=== PATIENT | male | born 1955 | race Caucasian/White ===

== ENCOUNTER → 2022-03-30 13:05 | Outpatient (BNVA) | payer MEDICARE, SELFPAY | PROVIDERS: PCP Family Medicine; Referring Provider Family Medicine; Visit Provider Surgery | DX: F17.210 Nicotine dependence, cigarettes, uncomplicated (principal); K40.20 Bilateral inguinal hernia, without obstruction or gangrene, not specified as recurrent | CPT/HCPCS: 99203; 99242 ==

== ENCOUNTER 2022-07-31 06:06 | Day surgery (SDC) | payer SELFPAY ==
--- NOTE | 2022-07-30 15:49 | ANES.PREOP_ITS ---
General Info Date of Service Date Performed: 07/31/22 Height: 5 ft 11 in Weight: 70.307 kg Body Mass Index (BMI): 21.6 Surgical Procedure: Operation Date: 07/31/22 07:40 Proposed Procedure Side Surgeon p Herniorrhaphy Inguinal w/Mesh Bilateral Pedro Higgins MD Meds Allergies and Home Medications Allergies Allergy/AdvReac Type Severity Reaction Status Date / Time watermelon Allergy Intermediate vomiting Uncoded 07/31/22 06:17 Home Medication Medication Instructions Recorded ibuprofen 200 mg tablet (Advil) 400 mg PO Q6H PRN 03/30/22 Current Visit Medications: Current Medications Generic Name Dose Route Start Last Admin Trade Name Freq PRN Reason Stop Dose Admin Acetaminophen 1,000 mg 07/31/22 06:00 Acetaminophen 500 Mg Tab PO 07/31/22 23:59 PREOP RADHA Celecoxib 200 mg 07/31/22 06:00 Celecoxib 200 Mg Cap PO 07/31/22 23:59 PREOP RADHA Gabapentin 600 mg 07/31/22 06:00 Gabapentin 300 Mg Cap PO 07/31/22 23:59 PREOP RADHA Ringer's Solution 1,000 mls @ 80 mls/hr 07/31/22 06:00 IV 07/31/22 23:59 [facility] IV Miscellaneous Supplies 1 each 07/31/22 06:00 Iv Access IV 07/31/22 23:59 DIRECTED RADHA Sodium Chloride 0 ml 07/31/22 06:00 Normal Saline Flush 10 Ml Syr IV 07/31/22 23:59 PRN PRN Sodium Chloride 0 ml 07/31/22 06:00 Normal Saline 10 Ml Vial IJ 07/31/22 23:59 DIRECTED PRN Sterile Water 0 ml 07/31/22 06:00 Water,Injection,Sterile 10 Ml Vial IJ 07/31/22 23:59 DIRECTED PRN PFSH Active Problems Active Problems: Problem Status Onset Code Current smoker F17.200 Establishing care with new doctor, encounter for Z76.89 Bilateral inguinal hernia K40.20 Medical History Medical History (Updated 07/31/22 @ 06:53 by Cinthya Hall) Hernia Tobacco Smoking/Tobacco Use Status: Current every day Tobacco Type: cigarettes Years smoked: 45 Passive smoking exposure: Yes Second hand exposure: Yes Alcohol Alcohol Intake: current Alcohol intake frequency: a few times a month Substance Use Substance use: Never Substance use type: does not use Vital Signs and Lab Results Vital Signs Most Recent Vital Signs in EMR: Temp Pulse Resp BP Pulse Ox 36.6 C 76 18 108/81 98 07/31/22 06:13 07/31/22 06:13 07/31/22 06:13 07/31/22 06:13 07/31/22 06:13 Lab Results Blood Type / Crossmatch: No Data to Display Complete Blood Count: No Data to Display Complete Metabolic Panel: No Data to Display Liver Function Panel: No Data to Display Coagulation Panel: No Data to Display Cardiac Panel: No Data to Display Arterial Blood Gas: No Data to Display Venous Blood Gas: No Data to Display Pancreas Panel: No Data to Display Thyroid Panel: No Data to Display Infectious Disease: No Data to Display Blood Cultures: No Data to Display Toxicology Panel: No Data to Display Anesthesia Assessment and Plan Anesthesia History Personal History: No History of General Anesthesia Family History: No Family History of Anesthesia Complications Exercise Tolerance Exercise Tolerance: Metabolic Equivalents>4 Cardiac & Pulmonary Exam Cardiac Exam: Normal S1/S2 Heart Sounds Pulmonary Exam: Clear Bilateral Breath Sounds Implantable Cardiac Device Does patient have a Pacemaker or an ICD?: No Airway Exam Known Difficult Airway: No Mallampati Class: 2 Mouth Opening: Normal (> 3cm) Thyromental Distance: Greater than 3 cm Neck Range of Motion: Full ROM Neck Circumference: Normal Teeth Condition: Edentulous ASA Classification ASA Score: ASA 2 Emergency Case?: No NPO Status NPO Status: NPO Clears >2 hours, Solids >8 hours Anesthesia Plan Resuscitation Status: Full Code Anesthesia Technique: General Anesthesia Airway Planned: LMA Pain Management: Surgeon and patient request nerve block Monitors Used: Standard Monitors Preoperative Comments:: 67 yo male for bilateral hernia repair. Sig PHMx: smoker, occ EtOH, Plan: GA, II/IH vs tap block, preop cocktail (ordered by [facility])
--- NOTE | 2022-07-30 21:14 | W.PM.HP.N ---
Date of service: 07/31/22 Time of Service: 06:24 Assessment and Plan Assessment and plan (1) Bilateral inguinal hernia: Status: Acute Assessment and plan: Proceed with bilateral inguinal herniorrhaphy today. History of Present Illness History of Present Illness Chief Complaint: Bilateral inguinal hernias Narrative: Matthew has bilateral inguinal hernias. He has had them for about a year and a half or 2. They are painful. He has experienced a slight increase in the frequency of the pain, and the slight increase in size of the right-sided inguinal hernia.? Both hernias remain reducible.? He decided to forego the pair a few weeks ago, because of some scheduling difficulty.? Otherwise, there have been no major significant changes in the interim. PFSH All Active Problems Current smoker (Acute) Establishing care with new doctor, encounter for (Acute) Bilateral inguinal hernia (Acute) Social History Smoking/Tobacco Use Status: Current every day Tobacco Type: cigarettes Years smoked: 45 Tobacco: How many years used: 50 Quit status: not considering quitting Second Hand Exposure: Yes Smoking risk assessment performed?: Yes Alcohol Intake: current Alcohol Intake frequency: a few times a month Drug use: Never Substance use type: does not use Adopted: No Caregiver/Support person: No Foster care: No Household members: spouse Housing: house Number of Children: 3 number of grandchildren: 2 Communication Needs: None Education Level: high school 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 Pets and animals: Yes (2 cats; 2 dogs) Pets and animals: cat(s) and dog(s) Sexually active: Yes Do you think of yourself as: straight/heterosexual Current gender identity: male What is your relationship status?: How often do you talk on the phone with friends or family?: three or more times per week How often do you get together with friends or relatives?: decline to answer Do you belong to any clubs or organized social groups?: no Panel score (0-1 are the most socially isolated patients): 2 What type of physical activity do you participate in: other 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 Elzbieta/Pentecostalism: None Special elzbieta needs: No Seatbelt use: sometimes Helmet use: Yes Helmet use: sometimes Drive intox or ride w/intox maintenance truck driver: No Do you feel safe at home: Yes Do you feel safe in your relationship?: Yes Meds Allergies and Home Medications Allergies Allergy/AdvReac Type Severity Reaction Status Date / Time watermelon Allergy Intermediate vomiting Uncoded 07/31/22 06:17 Home Medications Medication Instructions Recorded Confirmed Type ibuprofen 200 mg tablet (Advil) 400 mg PO Q6H PRN 03/30/22 07/30/22 History Exam Const General: cooperative, healthy appearing and comfortable Orientation: awake and oriented x3 Eyes General: appearance normal, both eyes and all related structures Conjunctivae: conjunctivae normal Sclera: sclerae normal Resp Effort & Inspection: normal respiratory effort and able to speak in complete sentences Auscultation: clear to auscultation bilaterally Cardio Jugular venous pressure: no JVD Rate: regular rate Rhythm: regular rhythm Heart Sounds: S1 normal and S2 normal GI Inspection: non-distended Palpation: soft, no guarding, hernia (Bilateral inguinal) and nontender Auscultation: normal bowel sounds Skin General skin exam: normal turgor Neuro General: patient alert, patient awake and patient oriented x3 Cognition: normal cognition Extrem Right lower extremity: no edema Left lower extremity: no edema Time Spent Time spent with Patient: <40 minutes Time was spent: other (Documenting)
--- NOTE | 2022-07-30 21:16 | ROE_ITS ---
Date of service: 07/31/22 Time of Service: 09:05 Operative Note Operative Note DATE OF PROCEDURE: 07/31/22 PRE-OP DIAGNOSIS: Bilateral inguinal hernias POST-OP DIAGNOSIS: same Left sided indirect inguinal hernia, right-sided direct and indirect inguinal hernias PROCEDURE: Open bilateral inguinal herniorrhaphy with mesh SURGEON: Pedro Higgins FOREIGN LANGUAGE INSTRUCTOR: Destiny Mora ANESTHESIA TYPE: Local By Surgeon and General LMA/ETT Refer to Anesthesia Record ESTIMATED BLOOD LOSS: 50 COMPLICATIONS: None Patient was transported to: PACU Patient's condition: stable Implants: Bard mesh Indications: Nico is a 67-year-old male with bilateral inguinal hernias. They have been increasing in size, becoming more painful while working Procedure Description: I began by confirming the bilaterality with the patient. Next, after induction of general anesthesia, their service performed bilateral tap blocks with real- time ultrasound guidance.. Surgical site was then prepped and draped in the usual fashion. I began by making an oblique incision over the left inguinal region. I dissected down through the skin to the deep fascia. Next, I incised the fascia along the length of the inguinal canal to the external ring. I then carefully identified the ilioinguinal nerve and divided the ilioinguinal nerve sharply. Once this was complete, I bluntly dissected the shelving edge of the inguinal ligament down towards the pubic tubercle. Here, I encircled all cord structures with a Hamlin drain. Next, I began dissecting the specific cord structures. Great care was taken to spare the vas deferens and the blood supply to the testicle. Next, I isolated the hernia sac from the other inguinal structures. I reduced it back to its normal anatomic position. This was an indirect inguinal hernia. Next, I buttressed the posterior floor of the inguinal canal with a large mesh patch. I started by fixing it to the pubic tubercle. Next, I used Prolene sutures to affix it to the shelving edge of the inguinal ligament and the conjoined tendon. Laterally I tacked it to the internal oblique fascia and reconstructed an internal ring without any strain on the cord structures. Once this was complete, I irrigated the surgical field. It appeared hemostatic. I then closed the anterior portion of the fascia to reconstruct the front wall of the inguinal canal. I did this with interrupted Vicryl stitches. Once again, I irrigated the surgical field and inspected for hemostasis. Finally, I approximated the superficial fascia and the deep layers of the skin with absorbable suture. Next, I turned my attention to the right inguinal canal. In a similar fashion, I dissected down through the skin to the deep fascia. Next, I incised the fascia along the length of the inguinal canal to the external ring. I then carefully identified the ilioinguinal nerve and divided the ilioinguinal nerve sharply. Once this was complete, I bluntly dissected the shelving edge of the inguinal ligament down towards the pubic tubercle. I encircled all cord structures with a Zoya drain. Next, I began dissecting the specific cord structures. Great care was taken to spare the vas deferens and the blood supply to the testicle. I isolated the hernia sac from the other inguinal structures. Mostly a direct inguinal hernia, but there was a small indirect inguinal component. Once the dissection was complete, just like the left side,Next, I buttressed the posterior floor of the inguinal canal with a large mesh patch. I started by fixing it to the pubic tubercle. Next, I used Prolene sutures to affix it to the shelving edge of the inguinal ligament and the conjoined tendon. Laterally I tacked it to the internal oblique fascia and reconstructed an internal ring without any strain on the cord structures. Once this was complete, I irrigated the surgical field. It appeared hemostatic. I then closed the anterior portion of the fascia to reconstruct the front wall of the inguinal canal. I did this with interrupted Vicryl stitches. Once again, I irrigated the surgical field and inspected for hemostasis. Finally, I approximated the superficial fascia and the deep layers of the skin with absorbable suture. Bandages were applied, and the patient was brought to the recovery unit.
--- NOTE | 2022-07-30 21:17 | PDOC.DSDIS_ITS ---
Date of service: 07/31/22 Time of Service: 09:18 Discharge Plan Disposition Patient Disposition: Home Condition: Good Discharge Details Reason For Visit: Bilateral inguinal hernia repair Attending Provider: Pedro Higgins Primary Care Provider: Hoang Molina Home Meds and New Rx's Prescriptions: No Action ibuprofen [Advil] 200 mg tablet 400 mg PO Q6H PRN Discharge Instructions Additional Instructions: Matthew, we were able to repair your inguinal hernias today without any difficulty. As we talked about before surgery, I repaired them with permanent implantable meshes. The operation went very smoothly. Expect to have some discomfort in your groins over the next few days. I provided a prescription for tramadol to help with your postoperative pain. Follow the instructions below. We look forward to seeing you in the office for routine follow-up care. If you have any questions in the meantime, please call us. 1. Resume all of your medications. 2. Okay to use tylenol and ibuprofen over the counter as needed. Use tramadol as needed for severe pain. 3. Use ice packs and heating pads for pain 4. Leave bandage in place for 24 hours, then remove. 5. Shower with warm soapy water. Pat dry. Use a bandaid if needed to protect your clothing. 6. No soaking or tub baths until I see you in the office. 7. No heavy lifting until I see you in the office. 8.Call the office (or go directly to the emergency room after hours) if you notice any of the following: Develop chills (warm to touch), or if you have a thermometer and your temperature is above 101 Difficulty breathing or difficultly swallowing Persistent vomiting Any bleeding ? exceeding one tablespoon 6. Call your physician if the site where your intravenous was started becomes red, swollen, painful, and warm to touch. Referrals: Pedro Higgins MD [ [facility] STAFF PHYSICIAN] - Activity:: No heavy lifting Remove Dressings/Wound Care:: 24 hours Shower/Bathe:: 24 hours Diet:: As Tolerated Discharge Orders Discharge Orders: Discharge Order (Routine); Ordered 07/30/22 Ordered By: Pedro Higgins DS: Diagnosis Discharge Diagnosis (1) Bilateral inguinal hernia: Status: Acute Asessment and Plan: Routine postoperative follow-up in the office
[2022-07-31] VITALS (11 sets, daily range): BP systolic 73–108; BP diastolic 43–81; PULSE 52–76; RESP 15–21; TEMP 36.1–36.7; O2SAT 93–98; BMI 21.6
[2022-07-31] MEDS: Acetaminophen 500 MG TAB 1000 MG PO (06:44)
[2022-07-31] MEDS: Gabapentin 300 MG CAP 600 MG PO (06:44)
[2022-07-31] MEDS: Celecoxib 200 MG CAP PO (06:44)
[2022-07-31] MEDS: Lactated Ringers 1,000 ML 80 ML IV ×2 (06:45→09:47)
[2022-07-31] MEDS: ceFAZolin 2 GM/50 ML BAG IVPB (07:16)
--- NOTE | 2022-07-31 07:41 | W.ANESNERVE ---
Nerve Block Single Injection Procedure Date and Time Date Performed: 07/31/22 Procedure Start: 07:25 Location Where Procedure Performed Procedure Location: Operating Room Procedure Stop: 07:34 Reason Performed: Postoperative Analgesia Requesting Provider: Pedro Higgins Timeout Performed Timeout Performed: Yes Monitoring Used ECG, Blood Pressure, SpO2 and ETCO2 Sterility Sterility: Hand Hygiene, Surgical Cap, Surgical Mask, Sterile Gloves and Chlorhexidine Sedation Given During Procedure Sedation Given (Indicate Dose Given): No Sedation given Patient Mental Status Patient Mental Status: Performed under general anesthesia Nerve Block 1st Nerve Block: Laterality: Bilateral Block Type: TAP Bilateral Ultrasound Image Saved?: Yes Needle / Catheter Used: 100mm SonoPlex II Local Anesthetic Bolus (Indicate Dose Given): Half of Total block solution given into each side and Bupivacaine 0.375% Dose:: 25 mg Additives (Indicate Dose Given): Epinephrine to make 1:200,000 (5mcg/ml) Dose:: 62 and Precedex Dose:: 58 mcg Ultrasound: Sterile probe cover and gel used Nerve Stimulator: Not Used Paresthesia: None Procedure Tolerated: No Complications Procedure Outcome: Successful Performed By: Silas Gomez
[2022-07-31] MEDS: Bupivacaine 0.25% Pres-Free W/EPI 30 ML VIAL (08:55)
--- NOTE | 2022-07-31 09:20 | PDOC.DSDIS_ITS ---
Discharge Plan Disposition Patient Disposition: Home Condition: Good Discharge Details Reason For Visit: Bilateral inguinal hernia repair Attending Provider: Pedro Higgins Primary Care Provider: Hoang Molina Home Meds and New Rx's Prescriptions: New tramadol 100 mg tablet 100 mg PO BID PRN (Reason: pain) Qty: 15 0RF Rx Instructions: Take 1 tablet by mouth up to every 8 hours as needed for severe pain. Do not drive while using this medication. No Action ibuprofen [Advil] 200 mg tablet 400 mg PO Q6H PRN Discharge Instructions Additional Instructions: Matthew, we were able to repair your inguinal hernias today without any difficulty. As we talked about before surgery, I repaired them with permanent implantable meshes. The operation went very smoothly. Expect to have some discomfort in your groins over the next few days. I provided a prescription for tramadol to help with your postoperative pain. Follow the instructions below. We look forward to seeing you in the office for routine follow-up care. If you have any questions in the meantime, please call us. 1. Resume all of your medications. 2. Okay to use tylenol and ibuprofen over the counter as needed. Use tramadol as needed for severe pain. 3. Use ice packs and heating pads for pain 4. Leave bandage in place for 24 hours, then remove. 5. Shower with warm soapy water. Pat dry. Use a bandaid if needed to protect your clothing. 6. No soaking or tub baths until I see you in the office. 7. No heavy lifting until I see you in the office. 8.Call the office (or go directly to the emergency room after hours) if you notice any of the following: Develop chills (warm to touch), or if you have a thermometer and your temperature is above 101 Difficulty breathing or difficultly swallowing Persistent vomiting Any bleeding ? exceeding one tablespoon 6. Call your physician if the site where your intravenous was started becomes red, swollen, painful, and warm to touch. Referrals: Pedro Higgins MD [ [facility] STAFF PHYSICIAN] - Activity:: No heavy lifting Remove Dressings/Wound Care:: 24 hours Shower/Bathe:: 24 hours Diet:: As Tolerated Discharge Orders Discharge Orders: Discharge Order (Routine); Ordered 07/30/22 Ordered By: Pedro Higgins DS: Diagnosis Discharge Diagnosis (1) Bilateral inguinal hernia: Status: Acute
[2022-07-31] MEDS: ePHEDrine 50 MG/ML VIAL 25 MG IM (10:00)
--- NOTE | 2022-07-31 11:48 | W.ANESPOSTOP ---
Postoperative Evaluation Date, Time and Location Date Performed: 07/31/22 Time Performed: 11:33 Patient Location: Day Surgery Unit Vital Signs Most Recent Imported Vital Signs: Most Recent Vital Signs Temp Pulse Resp BP Pulse Ox 36.3 C L 68 18 106/74 95 07/31/22 11:06 07/31/22 11:06 07/31/22 11:06 07/31/22 11:06 07/31/22 11:06 Pain Score Most Recent Pain Score: Most Recent Pain Score Pain Level 0 07/31/22 11:06 Assessment Mental Status: Awake (Alert & Oriented to Patient Baseline) Airway and Respiratory Function: Patent airway with normal (patient baseline) respiratory exam Cardiovascular Function: Hemodynamically Stable Hydration Status: Adequately Hydrated Nausea & Vomiting: No Nausea or Vomiting Pain: Pt. Denies Any Pain Peripheral Nerve Block: Regional nerve block not resolved at time of post operative discharge
== END 2022-07-31 11:40 | disposition home or self-care (01) ==
PROVIDERS: PCP Family Medicine; Visit Provider Surgery
PROC: (CPT 49505; principal; 2022-07-31 07:30)
DX: K40.20 Bilateral inguinal hernia, without obstruction or gangrene, not specified as recurrent (principal)
CPT/HCPCS: 49505; 76942; C1781; J0131; J0171; J0690; J1100; J1885; J2405; J3475